=== PATIENT | male | born 1950 | race Caucasian/White ===

== ENCOUNTER 2019-02-05 06:28 | Day surgery (SDC) | payer OTHER ==
[~2019-02-05] VITALS: Ht 170.2 cm; Wt 80.6 kg
[~2019-02-05 06:28] MED LIST: GLIMEPERIDE; [UNRECOGNIZED DRUG - OTHER]; aspirin; atorvastatin; buspirone; hydrochlorothiazide; lactulose; levothyroxine; losartan; metoclopramide; montelukast; pantoprazole; sulfasalazine; tamsulosin
[2019-02-05 07:21] VITALS: BP 125/73; PULSE 83; RESP 16; Ht 170.2 cm; Wt 80.6 kg
--- NOTE | 2019-02-05 07:39 | PREAC ---
Date/Time of Note Date/Time of Note DATE: 02/05/19 TIME: 07:35 Anesthesia Eval and Record Evaluation Time Pre-Procedure Interview DATE: 02/05/19 TIME: 07:35 Age 68 Sex male NPO: 8 hrs Preoperative diagnosis GERD Planned procedure EGD Past Medical History Past Medical History: Includes Cardio: HTN, Dyslipidemia Endo: Diabetes, Hypothyroid Pulm: COPD, Sleep Apnea, Asthma GI: Morbid obesity Surgery & Anesthesia Issues No known issue Meds Anticoagulation: Yes Beta Elida within 24 hr: No Reason Beta Elida not given: Pt. not on B-Elida Reported Medications [losartan] No Conflict Check 02/05/19 [pantoprazole] No Conflict Check 02/05/19 [aspirin] No Conflict Check 02/05/19 Meds reviewed: Yes Allergies Coded Allergies: No Known Allergy (Unverified , 02/05/19) Allergies Reviewed: Yes Labs/Studies Labs Reviewed: Reviewed by anesthesiologist test: N/A Studies: ECG Pre-procedure Exam Last vitals BP:112/56, P;78, Spo2;100%, T:98,9 Airway: Adequate mouth opening, Adequate thyromental dist Mallampati: Mallampati II Teeth: Normal Lung: Normal Heart: Normal ASA Physical Status ASA physical status: 3 Emergency: None Planned Anesthetic General/MAC: MAC Planned Pain Management Parenteral pain med Pre-operative Attestations Prior to commencing anesthesia and surgery, the patient was re-evaluated, there was verification of: *The patient's identity *The results of appropriate recent lab work and preoperative vital signs *The above evaluation not changing prior to induction *Anesthetic plan, risk benefits, alternative and complications discussed with patient/family; questions answered; patient/family understands, accepts and wishes to proceed. EMANUEL LAL MD Feb 05, 2019 07:38
[2019-02-05] MEDS ORDERED: LIDOCAINE 2% (SDV) 5 ML INJ ONE (07:48)
[2019-02-05] MEDS ORDERED: PROPOFOL 40 ML ONE (07:48)
--- NOTE | 2019-02-05 08:11 | PAC ---
Date/Time of Note Date/Time of Note DATE: 02/05/19 TIME: 08:11 Post-Anesthesia Notes Post-Anesthesia Note Activity: WNL Respiratory function: WNL Cardiovascular function: WNL Mental status: Baseline Pain reasonably controlled: Yes Hydration appropriate: Yes Nausea/Vomiting absent: Yes Comments BP:112/56, P:67, Spo2:100%, T:98,8 EMANUEL LAL MD Feb 05, 2019 08:11
[2019-02-05 08:37] VITALS: BP 127/79; PULSE 64; RESP 16
== END 2019-02-05 09:57 | disposition home or self-care (01) ==
LOC: GIL 06:28
PROVIDERS: ATTEND Internal Medicine Gastroenterology
DX: K44.9 Diaphragmatic hernia without obstruction or gangrene (principal); K29.00 Acute gastritis without bleeding; I10 Essential (primary) hypertension; E03.9 Hypothyroidism, unspecified; E11.9 Type 2 diabetes mellitus without complications; J44.9 Chronic obstructive pulmonary disease, unspecified
CPT/HCPCS: 82962; 88305; 88312